=== PATIENT | female | born 1960 | race Caucasian/White ===

== ENCOUNTER 2016-06-27 08:41 | Emergency (ER) | payer BC ==
[~2016-06-27] VITALS: Ht 157.5 cm; Wt 76.2 kg
[2016-06-27 08:44] VITALS: Ht 157.5 cm; Wt 76.2 kg
[2016-06-27] MEDS ORDERED: morphine 4 MG/ML VIAL IV STA (09:26)
[2016-06-27] MEDS ORDERED: ONDANSETRON 4 MG INJ IV STA (09:26)
[2016-06-27] MEDS ORDERED: SOD CHLORIDE 0.9% 1,000 ML IV STA (09:26)
[2016-06-27 10:15] LABS: ADD SCAN DIFF NO
[2016-06-27 10:25] LABS: BASOPHILS % 0.2 % (0.0-2.0); HEMATOCRIT 37.8 % (37.0-47.0); HEMOGLOBIN 12.5 g/dl (12.0-16.0); LYMPHOCYTES % 11.5 % (15.0-51.0); MEAN CORPUSCULAR HEMOGLOBIN 29.1 pg (29.0-33.0); MEAN CORPUSCULAR HGB CONC 33.1 g/dl (32.0-37.0); MEAN CORPUSCULAR VOLUME 88.1 fl (82.0-101.0); MEAN PLATELET VOLUME 12.1 fl (7.4-10.4); MONOCYTES % 12.1 % (0.0-11.0); NEUTROPHIL # 6.4 10^3/ul (1.6-7.5); PLATELET COUNT 155 10^3/UL (140-415); RED BLOOD COUNT 4.29 10^6/ul (4.20-5.40); RED CELL DISTRIBUTION WIDTH 13.3 % (11.5-14.5); WHITE BLOOD COUNT 8.4 10^3/ul (4.8-10.8)
[2016-06-27 10:28] LABS: ALBUMIN 3.9 g/dl (3.3-4.9); POTASSIUM 4.5 mmol/L (3.5-5.1)
[2016-06-27 10:30] LABS: CREATININE 0.53 mg/dl (0.44-1.00)
[2016-06-27 10:31] LABS: ALBUMIN/GLOBULIN RATIO 0.92; BILIRUBIN,INDIRECT 0.6 mg/dl (0-1.1); BILIRUBIN,TOTAL 0.6 mg/dl (0.2-1.3); CALCIUM 8.4 mg/dl (8.4-10.2); TOTAL PROTEIN 8.1 g/dl (6.1-8.1)
--- NOTE | 2016-06-27 10:52 | RADRPT ---
PROCEDURE: US Pelvis. CLINICAL INDICATION: Abdominal pain. TECHNIQUE: Multiple sonographic images of the pelvis were obtained utilizing a transabdominal and endovaginal technique. The images were reviewed on a PACS workstation. COMPARISON: None available. FINDINGS: The uterus is retroverted and measures 5.7 x 3.3 x 4.5 cm. The endometrial echo complex is normal an d measures 5.9 mm. There is a 1.5 x 0.7 x 1.0 cm intramural fibroid seen in the posterior body of th e uterus. There is a 0.5 cm hypoechoic focus in the endometrium. The ovaries are not visualized. There are no adnexal masses. There is trace free fluid in the cul-de-sac. IMPRESSION: 1. 0.5 cm hypoechoic focus in the endometrium. This may represent a small polyp. 2. 1.5 x 0.7 x 1.0 cm intramural fibroid in the posterior body of the uterus. RPTAT: [facility] Physician Ha Date Time Electronically viewed and signed by Physician Ha on 06/27/2016 10:52 /
[2016-06-27] MEDS ORDERED: CIPR500T4 PO (12:42)
[2016-06-27] MEDS ORDERED: ONDA4TAB14 PO (12:42)
[2016-06-27] MEDS ORDERED: IBUP-1542 PO (12:42)
--- NOTE | 2016-06-27 12:43 | RADRPT ---
PROCEDURE: CT Abdomen and Pelvis without contrast. CLINICAL INDICATION: Abdominal and pelvic pain. TECHNIQUE: CT scan of the abdomen and pelvis without contrast was performed. Coronal and sagittal reformatted images were obtained from the axial source images. Images were reviewed on a [employer] PACS workstation. Total exam DLP is 702.64 mGy-cm. CTDIvol is 11.43 mGy. One or more of the f ollowing dose reduction techniques were used: Automated exposure control, adjustment of the mA and/o r kV according to patient size, use of iterative reconstruction technique. COMPARISON: None. FINDINGS: The lung bases are normal. There is no pleural effusion. The liver is normal in size and attenuation. There is no focal hepatic lesion. The gallbladder and bile ducts are normal. The spleen is normal in size. There is no focal splenic lesion. Both adrenals are normal with no enlargement or mass. The pancreas is unremarkable with no mass or evidence of pancreatitis. There is no renal mass. There is no renal calculus or ureteral calculus. However, there is mild rig ht hydroureteronephrosis and mild right perinephric edema. This may indicate recent passage of a ca lculus. The abdominal aorta is not dilated. There is no retroperitoneal lymphadenopathy or mass. There is no pelvic lymphadenopathy or mass. The bladder and distal ureters are normal. The periappendiceal region is unremarkable with no evidence of appendicitis. The appendix is well se en and appears normal. There is diverticulosis of the descending colon and sigmoid colon. There is no evidence of divertic ulitis. The bowel and mesentery are otherwise normal. There is no free fluid or free gas. There are mild degenerative changes of the spine. There is no fracture or lytic lesion. IMPRESSION: 1. Mild right hydroureteronephrosis and mild right perinephric edema may indicate recent passage of a calculus. There is no urinary tract calculus visualized at this time. 2. Normal appendix. 3. Diverticulosis of the descending colon and sigmoid colon. No evidence of diverticulitis. 4. Mild degenerative changes of the spine. Call report: A call report of the findings was made to Dr. Palma on 06/27/2016 at 1228 hours. RPTAT: QQ .Larry Damon MD, MD Date Time Electronically viewed and signed by .Larry Damon MD, on 06/27/2016 12:29 .R/
--- NOTE | 2016-06-27 12:52 | ERD ---
ER Documentation Chief Complaint Date/Time DATE: 06/27/16 TIME: 12:46 Chief Complaint ap, neck pain, feels weak x 3 days HPI Patient is a 35-year-old female with no medical problems who presents with abdominal pain. The patient has had 3 days of right lower quadrant abdominal pain. The pain comes and goes. She said that she has had a fever as well. She denies vomiting or diarrhea. She tried Motrin for pain. Upon review of old medical records this is the patient's first visit to the emergency department. She does not know the name of her primary doctor. ROS All systems reviewed and are negative except as per history of present illness. Medications Home Meds Active Scripts Ciprofloxacin Hcl* (Ciprofloxacin Hcl*) 500 Mg Tablet, 500 MG PO BID for 7 Days , TAB Prov:FEDE GONZALEZ MD 06/27/16 Ondansetron (Ondansetron Odt) 4 Mg Tab.rapdis, 4 MG PO Q6H Y for NAUSEA AND/OR VOMITING, #30 TAB Prov:FEDE GONZALEZ MD 06/27/16 Ibuprofen* (Motrin*) 600 Mg Tab, 600 MG PO Q6H Y for PAIN AND OR ELEVATED TEMP, #30 TAB Prov:FEDE GONZALEZ MD 06/27/16 Allergies Allergies: Coded Allergies: No Known Allergy (Unverified , 06/27/16) PMhx/Soc History of Surgery: Yes ( x 2) Anesthesia Reaction: No Hx Neurological Disorder: No Hx Respiratory Disorders: No Hx Cardiac Disorders: No Hx Psychiatric Problems: No Hx Miscellaneous Medical Probl: No Hx Alcohol Use: No Hx Substance Use: No Hx Tobacco Use: No Smoking Status: Never smoker FmHx Family History: No diabetes Physical Exam Vitals Vital Signs Date Time Temp Pulse Resp B/P Pulse Ox O2 Delivery O2 Flow Rate FiO2 06/27/16 08:44 97.8 92 20 127/77 99 Physical Exam Const: Mild distress secondary for AP Head: Atraumatic Eyes: Normal Conjunctiva ENT: Normal External Ears, Nose and Mouth. Neck: Full range of motion..~ No meningismus. Resp: Clear to auscultation bilaterally Cardio: Regular rate and rhythm, no murmurs Abd: Soft, RLQ abd pain with rebound or guarding Skin: No petechiae or rashes Back: No midline or flank tenderness Ext: No cyanosis, or edema Neur: Awake and alert Psych: Normal Mood and Affect Result Diagram: 06/27/1648 06/27/16 0948 Results 24 hrs Laboratory Tests Test 06/27/16 09:48 White Blood Count 8.410^3/ul Red Blood Count 4.2910^6/ul Hemoglobin 12.5g/dl Hematocrit 37.8% Mean Corpuscular Volume 88.1fl Mean Corpuscular Hemoglobin 29.1pg Mean Corpuscular Hemoglobin Concent 33.1g/dl Red Cell Distribution Width 13.3% Platelet Count 21069^3/UL Mean Platelet Volume 12.1fl Neutrophils % 76.0% Lymphocytes % 11.5% Monocytes % 12.1% Eosinophils % 0.0% Basophils % 0.2% Nucleated Red Blood Cells % 0.0/100WBC Neutrophils # 6.410^3/ul Lymphocytes # 1.010^3/ul Monocytes # 1.010^3/ul Eosinophils # 0.010^3/ul Basophils # 0.010^3/ul Nucleated Red Blood Cells # 0.010^3/ul Sodium Level 133mmol/L Potassium Level 4.5mmol/L Chloride Level 102mmol/L Carbon Dioxide Level 23mmol/L Anion Gap 13 Blood Urea Nitrogen 13mg/dl Creatinine 0.53mg/dl Glucose Level 106mg/dl Calcium Level 8.4mg/dl Total Bilirubin 0.6mg/dl Direct Bilirubin 0.00mg/dl Indirect Bilirubin 0.6mg/dl Aspartate Amino Transf (AST/SGOT) 45IU/L Alanine Aminotransferase (ALT/SGPT) 29IU/L Alkaline Phosphatase 100IU/L Total Protein 8.1g/dl Albumin 3.9g/dl Globulin 4.20g/dl Albumin/Globulin Ratio 0.92 Lipase 31U/L Current Medications Medications (Trade) Dose Ordered Sig/Nora Route PRN Reason Start Time Stop Time Status Last Admin Dose Admin Sodium Chloride (NS) 1,000 ml @ 1,000 mls/hr Q1H STAT IV 06/27/16 09:26 06/27/16 10:25 DC 06/27/16 10:29 Morphine Sulfate (morphine) 4 mg ONCE STAT IV 06/27/16 09:26 06/27/16 09:28 DC 06/27/16 10:28 Ondansetron HCl (Zofran Inj) 4 mg ONCE STAT IV 06/27/16 09:26 06/27/16 09:28 DC 06/27/16 10:28 Procedures/MDM CT scan shows possibly recently passed right-sided kidney stone per radiology. Ultrasound of the pelvis negative for surgical process per radiology. No sign of ovarian torsion. Patient is a 55-year-old female presents with right lower quadrant abdominal pain. CT scan shows a normal appendix. This CT scan shows a possibly recently passed kidney stone which may be the cause of her pain. I will also cover her with Cipro for possible pyelonephritis. The patient has normal laboratory studies. The patient will be discharged and can follow-up with a primary doctor within 24-48 hours. The patient will be given a prescription for ibuprofen, Zofran, and Cipro. The patient should follow-up with the primary doctor and can return for any worsening symptoms. Departure Diagnosis: Primary Impression: Kidney stone Additional Impression: Abdominal pain Abdominal location: right lower quadrant Qualified Code: R10.31 - Right lower quadrant abdominal pain Condition: Fair Patient Instructions: Abdominal Pain, Kidney Stone W/ Colic Additional Instructions: Llame al doctor MAANA y selvin nohemi VARGAS PARA DENTRO DE 1-2 BUENO.Dgale a la secretaria que nosotros le instruimos hacer esta vargas.Avise o llame si [place]wood condicin se empeora antes de la vargas. Regresa aqui si peor o no mejor. FEDE GONZALEZ MD Jun 27, 2016 12:52
[2016-06-27 13:00] VITALS: BP 122/63; PULSE 64; RESP 18
== END 2016-06-27 13:14 | disposition home or self-care (01) ==
LOC: E/R 08:41
DX: N20.0 Calculus of kidney (principal)
CPT/HCPCS: 36415; 74176; 76830; 76856; 80053; 83690; 85025; 96374; 96375; 99285; J2270; J2405; J7030

== ENCOUNTER 2017-03-04 08:38 | Emergency (ER) | payer BC ==
[~2017-03-04] VITALS: Ht 157.5 cm; Wt 73.8 kg
[~2017-03-04 08:38] MED LIST: CIPR500T4 PO; IBUP-1542 PO; ONDA4TAB14 PO
[2017-03-04 08:40] VITALS: Ht 157.5 cm; Wt 73.8 kg
[2017-03-04] MEDS ORDERED: morphine 2 MG INJ IV STA (09:10)
[2017-03-04] MEDS ORDERED: KETOROLAC 30 MG INJ IV STA (09:10)
[2017-03-04] MEDS ORDERED: ASPIRIN 325 MG TAB PO STA (09:10)
--- NOTE | 2017-03-04 09:27 | ERD ---
ER Documentation Chief Complaint Chief Complaint Complains of a cough and fever x 3 days HPI This 56-year-old female comes emergency room complaining of significant cough for 3 days as well as fever and generalized body aches. She also says that she has significant chest pain described as a pressure-like sensation substernal nonradiating. The chest pain is worse with cough but she has when she is not coughing. She does not have medical follow-up and does not know if she has hypertension hypercholesterolemia or any other chronic diagnosis. ROS All systems reviewed and are negative except as per history of present illness. Medications Home Meds Active Scripts Albuterol Sulfate* (Ventolin HFA*) 18 Gm Hfa.aer.ad, 2 PUFF INHALATION Q4H, #1 INHALER Prov:KEVIN CAMPBELL DO 03/04/17 Hydrocodone/Acetaminophen ([place] 5-325 Tablet) 1 Each Tablet, 1 EACH PO Q6, #14 TAB Prov:KEVIN CAMPBELL DO 03/04/17 Naproxen* (Naproxen*) 500 Mg Tablet, 500 MG PO BID Y for PAIN, #20 TAB Prov:KEVIN CAMPBELL DO 03/04/17 Ciprofloxacin Hcl* (Ciprofloxacin Hcl*) 500 Mg Tablet, 500 MG PO BID for 7 Days , TAB Prov:FEDE GONZALEZ MD 06/27/16 Ondansetron (Ondansetron Odt) 4 Mg Tab.rapdis, 4 MG PO Q6H Y for NAUSEA AND/OR VOMITING, #30 TAB Prov:FEDE GONZALEZ MD 06/27/16 Ibuprofen* (Motrin*) 600 Mg Tab, 600 MG PO Q6H Y for PAIN AND OR ELEVATED TEMP, #30 TAB Prov:FEDE GONZALEZ MD 06/27/16 Allergies Allergies: Coded Allergies: No Known Allergy (Unverified , 06/27/16) PMhx/Soc History of Surgery: Yes ( x 2) Anesthesia Reaction: No Hx Neurological Disorder: No Hx Respiratory Disorders: No Hx Cardiac Disorders: No Hx Psychiatric Problems: No Hx Miscellaneous Medical Probl: No Hx Alcohol Use: No Hx Substance Use: No Hx Tobacco Use: No Smoking Status: Never smoker Physical Exam Vitals Vital Signs Date Time Temp Pulse Resp B/P Pulse Ox O2 Delivery O2 Flow Rate FiO2 03/04/17 08:40 100.9 92 20 119/60 95 Physical Exam Const: [] Mild to moderate distress, appears uncomfortable Head: Atraumatic Eyes: Normal Conjunctiva ENT: Normal External Ears, Nose and Mouth. Neck: Full range of motion..~ No meningismus. Resp: Clear to auscultation bilaterally Cardio: Regular rate and rhythm, no murmurs Abd: Soft, non tender, non distended. Normal bowel sounds Skin: No petechiae or rashes Back: No midline or flank tenderness Ext: No cyanosis, or edema Neur: Awake and alert Psych: Normal Mood and Affect Result Diagram: 03/04/1792403/04/17924 Results 24 hrs Laboratory Tests Test 03/04/17 09:25 White Blood Count 4.310^3/ul Red Blood Count 4.9810^6/ul Hemoglobin 14.5g/dl Hematocrit 43.5% Mean Corpuscular Volume 87.3fl Mean Corpuscular Hemoglobin 29.1pg Mean Corpuscular Hemoglobin Concent 33.3g/dl Red Cell Distribution Width 12.9% Platelet Count 08578^3/UL Mean Platelet Volume 11.4fl Neutrophils % 68.2% Lymphocytes % 15.2% Monocytes % 15.7% Eosinophils % 0.2% Basophils % 0.5% Nucleated Red Blood Cells % 0.0/100WBC Neutrophils # 2.910^3/ul Lymphocytes # 0.710^3/ul Monocytes # 0.710^3/ul Eosinophils # 0.010^3/ul Basophils # 0.010^3/ul Nucleated Red Blood Cells # 0.010^3/ul Sodium Level 139mmol/L Potassium Level 3.8mmol/L Chloride Level 102mmol/L Carbon Dioxide Level 29mmol/L Anion Gap 12 Blood Urea Nitrogen 10mg/dl Creatinine 0.66mg/dl Glucose Level 102mg/dl Calcium Level 8.6mg/dl Troponin I < 0.012ng/ml Current Medications Medications (Trade) Dose Ordered Sig/Nora Route PRN Reason Start Time Stop Time Status Last Admin Dose Admin Aspirin (Aspirin) 325 mg ONCE STAT PO 03/04/17 09:10 03/04/17 09:11 DC 03/04/17 09:22 Morphine Sulfate (morphine) 2 mg ONCE STAT IV 03/04/17 09:10 03/04/17 09:11 DC 03/04/17 09:23 Ketorolac Tromethamine (Toradol) 30 mg ONCE STAT IV 03/04/17 09:10 03/04/17 09:11 DC 03/04/17 09:23 Procedures/MDM Likely viral upper respiratory infection in 56-year-old female without good medical follow-up. States that she actually does have a primary care doctor she just been there for years. Low white count is possibly secondary to viral suppression. Workup was negative with normal EKG and no elevated troponin. Given Toradol and 2 mg of morphine which helped suppress her cough as well as eliminate her body aches. She is feeling much better. I am going to discharge her with [place] and naproxen. is at the bedside now. A primary care follow-up in the next 2-3 days and she agrees to actually call her primary care doctor for follow-up appointment. I told her return to emergency room for any return of chest pain or any other concerning symptom. EKG interpretation: Normal sinus rhythm, normal axis, no ST-T wave changes concerning for acute ischemia, normal intervals. Normal company controller interpretation: Normal sinus rhythm with occasional sinus tachycardia. No other arrhythmias Chest x-ray interpretation: I see no acute process. I see no infiltrates, no pulmonary edema, no widened mediastinum, no pneumothorax, no fractures Departure Diagnosis: Primary Impression: URI, acute Additional Impression: Chest pain Condition: Stable KEVIN CAMPBELL DO Mar 04, 2017 09:27
[2017-03-04 09:53] LABS: BASOPHILS % 0.5 % (0.0-2.0); EOSINOPHILS % 0.2 % (0.0-7.0); HEMATOCRIT 43.5 % (37.0-47.0); HEMOGLOBIN 14.5 g/dl (12.0-16.0); LYMPHOCYTES # 0.7 10^3/ul (0.8-2.9); LYMPHOCYTES % 15.2 % (15.0-51.0); MEAN CORPUSCULAR HEMOGLOBIN 29.1 pg (29.0-33.0); MEAN CORPUSCULAR HGB CONC 33.3 g/dl (32.0-37.0); MEAN CORPUSCULAR VOLUME 87.3 fl (82.0-101.0); MEAN PLATELET VOLUME 11.4 fl (7.4-10.4); MONOCYTE # 0.7 10^3/ul (0.3-0.9); MONOCYTES % 15.7 % (0.0-11.0); NEUTROPHIL # 2.9 10^3/ul (1.6-7.5); NEUTROPHILS % 68.2 % (39.0-77.0); PLATELET COUNT 166 10^3/UL (140-415); RED BLOOD COUNT 4.98 10^6/ul (4.20-5.40); RED CELL DISTRIBUTION WIDTH 12.9 % (11.5-14.5); WHITE BLOOD COUNT 4.3 10^3/ul (4.8-10.8)
--- NOTE | 2017-03-04 09:58 | RADRPT ---
PROCEDURE: XR Chest. CLINICAL INDICATION: Chest pain . TECHNIQUE: Single frontal chest x-ray. COMPARISON: None. FINDINGS: The lungs are clear of acute infiltrates, edema, effusions, or masses.. The cardiomediastinal silho uette is unremarkable. The osseous structures are intact. IMPRESSION: No acute cardiopulmonary disease. RPTAT: QQ .Miko Hughes MD, MD Date Time Electronically viewed and signed by .Miko Hughes MD, MD on 03/04/2017 09:58 .L/
[2017-03-04 10:15] LABS: ANION GAP 12 (8-16); BLOOD UREA NITROGEN 10 mg/dl (7-20); CALCIUM 8.6 mg/dl (8.4-10.2); CARBON DIOXIDE 29 mmol/L (21-31); CHLORIDE 102 mmol/L (97-110); CREATININE 0.66 mg/dl (0.44-1.00); GLUCOSE 102 mg/dl (70-220); POTASSIUM 3.8 mmol/L (3.5-5.1); SODIUM 139 mmol/L (135-144)
[2017-03-04 10:28] LABS: TROPONIN-I < 0.012 ng/ml (0.00-0.12)
[2017-03-04] MEDS ORDERED: HYDR-906 PO (10:31)
[2017-03-04] MEDS ORDERED: NAPR-688 PO (10:31)
[2017-03-04] MEDS ORDERED: ALBU18HF INHALATION (10:59)
== END 2017-03-04 11:32 | disposition home or self-care (01) ==
LOC: FTE 08:38
DX: J06.9 Acute upper respiratory infection, unspecified (principal); R07.9 Chest pain, unspecified
CPT/HCPCS: 36415; 71010; 80048; 84484; 85025; 93005; 96374; 96375; J1885; J2270; Z7502; Z7610